=== PATIENT | female | born 1985 | race Hispanic/Latino ===

== ENCOUNTER 2016-11-03 09:38 | Emergency (ER) | payer BC, OTHER ==
[2016-11-03] MEDS ORDERED: DiphenhydrAMINE 50 mg/ml Inj IV STA (10:50)
--- NOTE | 2016-11-03 10:54 | ED PDOC ---
HPI: Skin/Bite Injury Time Seen by Provider: 11/03/16 10:06 Chief Complaint (Nursing): Upper Extremity Problem/Injury Chief Complaint (Provider): rashes History Per: Patient, Other (significant other) History/Exam Limitations: no limitations Current Symptoms Are (Timing): Still Present Quality Of Symptoms: Itching, Swollen Additional Complaint(s): 31yo female prior well, since mid Aug has been dealing with episodic itchy rashes mostly to arms, less to legs and trunk. She has seen JAYDA Angel [facility] and been on several rounds of antihistamines and steroids without improvement. She denies fever, weight loss, headache, malaise or foreign travel in last year. 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 Past Medical History Reviewed: Historical Data, Nursing Documentation, Vital Signs Vital Signs: Last Vital Signs Temp 97.6 F 11/03/16 13:19 Pulse 78 11/03/16 13:19 Resp 20 11/03/16 13:19 BP 128/78 11/03/16 13:19 Pulse Ox 98 11/03/16 13:19 - Medical History PMH: No Chronic Diseases - Surgical History Surgical History: No Surg Hx - Family History Family History: States: Unknown Family Hx - Living Arrangements Living Arrangements: With Friends/Others - Social History Drugs: Denies - Home Medications Home Medications: Ambulatory Orders Medication Instructions Recorded Hydroxyzine HCl 25 mg PO Q6 PRN #14 tablet 11/03/16 Prednisone 50 mg PO DAILY #4 tab 11/03/16 - Allergies Allergies/Adverse Reactions: Allergies Allergy/AdvReac Type Severity Reaction Status Date / Time No Known Allergies Allergy Verified 11/03/16 10:04 Review of Systems ROS Statement: Except As Marked, All Systems Reviewed And Found Negative Constitutional: Negative for: Fever, Chills Eyes: Negative for: Pain, Vision Change ENT: Negative for: Ear Discharge, Nose Pain Cardiovascular: Negative for: Chest Pain, Palpitations Respiratory: Negative for: Cough, Shortness of Breath Gastrointestinal: Negative for: Nausea, Vomiting, Abdominal Pain Genitourinary Female: Negative for: Dysuria, Frequency Skin: Positive for: Rash, Lesions. Negative for: Jaundice, Bruising Neurological: Negative for: Weakness, Numbness, Headache, Dizziness Physical Exam - Reviewed Nursing Documentation Reviewed: Yes Vital Signs Reviewed: Yes - Physical Exam Appears: Positive for: Well, Non-toxic, No Acute Distress Head Exam: Positive for: ATRAUMATIC, NORMAL INSPECTION, NORMOCEPHALIC Skin: Positive for: Warm, Dry, Rash (R hand ?bite lesion dorsum with surrounding blanching urticarial appearing erythema, scattered small bites vs excortiations to arms, states one to leg nonvisualized, neg involvement to palms or soles). Negative for: Diaphoresis, Pallor, Jaundice, Mottled, Cyanosis Eye Exam: Positive for: Normal appearance, EOMI, PERRL. Negative for: Periorbital swelling, Periorbital tenderness ENT: Positive for: Normal ENT Inspection. Negative for: Pharyngeal Erythema, Tonsillar Exudate, Tonsillar Swelling Neck: Positive for: Normal, Painless ROM Cardiovascular/Chest: Positive for: Regular Rate, Rhythm Respiratory: Positive for: Normal Breath Sounds. Negative for: Decreased Breath Sounds, Wheezing Extremity: Positive for: Normal ROM, Swelling ( R dorsum hand). Negative for: Deformity Neurologic/Psych: Positive for: Alert, Oriented, Gait (normal). Negative for: Motor/Sensory Deficits, Facial Droop - Laboratory Results Result Diagrams: 11/03/16 11:49 11/03/16 11:49 - ECG O2 Sat by Pulse Oximetry: 99 Pulse Ox Interpretation: Normal Medical Decision Making Medical Decision Making: check basic labs and likely needs referral to director of clinical applications labs reviewed and clinically unremarkable. ESR normal. Needs director of clinical applications workup. No signs anaphylaxis in ED. Followup IgE and RPR as outpatient. Disposition - Clinical Impression Clinical Impression: Rash, Urticaria - Patient ED Disposition Is Patient to be Admitted: No Counseled Patient/Family Regarding: Studies Performed, Diagnosis, Need For Followup, Rx Given - Disposition Referrals: [facility] [Provider Group] Disposition: Routine/Home Disposition Time: 12:35 Condition: STABLE Additional Instructions: See director of clinical applications for further testing. Return to ER for any progression of symptoms , weakness, difficulty breathing, fever or any concern. Eliminate all jewelry and lotions/creams for one week and keep diary of location and quality of symptoms. Consider biopsy via [facility]. Remaining bloodwork will return in 1-2 days (RPR and IgE) Prescriptions: Hydroxyzine HCl 25 mg PO Q6 PRN #14 tablet PRN Reason: Itching / Pruritus Prednisone 50 mg PO DAILY #4 tab Instructions: Urticaria (ED), Acute Rash (ED)
[2016-11-03 11:53] LABS: BASO % 0.4 % (0.0-2.0); EOS # 0.1 K/uL (0.0-0.7); EOS % 0.7 % (0.0-4.0); HEMATOCRIT 39.3 % (34.0-47.0); LYMPH # 1.9 K/uL (1.0-4.3); LYMPH % 20.7 % (20.0-40.0); MEAN CELL VOLUME 93.6 fl (81.0-99.0); MEAN CORPUSCULAR HEMOGLOBIN 31.8 pg (27.0-31.0); MEAN PLATELET VOLUME 8.7 fl (7.2-11.7); MONO # 0.4 K/uL (0.0-0.8); MONO % 4.4 % (0.0-10.0); NEUT # 6.8 K/uL (1.8-7.0); NEUT % 73.8 % (50.0-75.0); RED CELL DISTRIBUTION WIDTH 13.3 % (11.5-14.5); WHITE BLOOD COUNT 9.2 K/uL (4.8-10.8)
[2016-11-03 12:09] LABS: CHLORIDE 105 mmol/L (98-107); POTASSIUM 3.9 MMOL/L (3.6-5.0); SODIUM 139 mmol/l (132-148)
[2016-11-03 12:11] LABS: GFR AFRICAN-AMERICAN > 60
[2016-11-03 12:12] LABS: ALB/GLOB RATIO 1.4 (1.0-2.1); ALKALINE PHOSPHATASE 52 U/L (38-126); ALT/SGPT 17 U/L (9-52); AST/SGOT 33 U/L (14-36); BILIRUBIN,TOTAL 0.6 mg/dl (0.2-1.3); BLOOD UREA NITROGEN 9 mg/dl (7-17); CALCIUM 8.7 mg/dL (8.4-10.2); CARBON DIOXIDE 27 mmol/L (22-30); GLUCOSE,RANDOM 86 mg/dL (65-105); TOTAL PROTEIN 6.8 G/DL (6.3-8.2)
[2016-11-03 13:20] VITALS: BP 128/78; PULSE 78; RESP 20; TEMP 97.6
[2016-11-04 15:25] VITALS: O2SAT 99
== END 2016-11-03 13:19 | disposition home or self-care (01) ==
LOC: H.ER 09:38
DX: L50.9 Urticaria, unspecified (principal)